=== PATIENT | female | born 1955 | race Two or more races ===

== ENCOUNTER → 2017-02-09 | Outpatient (CLI) | payer OTHER ==
[2015-07-04 02:17] VITALS: BP 128/70
[~2017-02-09] MED LIST: ALPR0.5T6 PO; CYCL10TA2 PO; FLEC100T PO; HYDR12.58 PO; IBUP-1027 PO; IOHEXOL 180 MG/ML 10 ML VIAL. ONE; LEVO125T5 PO; LEVO150T5 PO; LEVO25TA55 PO; METO-269 PO; MULT1TAB52 PO; SUMA25TA3 PO; SUMA50TA3 PO; TRIA1TAB3 PO; methylPREDNISolone ACETATE 40 MG/ML VIAL. ONE; methylPREDNISolone ACETATE 80 MG/ML VIAL. ONE
--- NOTE | 2017-02-09 23:44 | PAIN ---
DATE OF SERVICE: 02/09/2017 PROGRESS NOTE FOR PAIN CLINIC DIAGNOSES: 1. Cervical radiculopathy with cervical degenerative disk disease. 2. Lumbar radiculopathy with lumbar degenerative disk disease. HISTORY OF PRESENT ILLNESS: The patient is a 61-year-old female who returns for followup status post cervical epidural steroid injections, most recently seen on 10/13/2015. The patient did very well near 100% improvement with her neck pain. Her main complaint today is low back and bilateral lower extremity pain. The patient has had difficulty with this about a year ago to 2 years ago and I did very well with lumbar epidural steroid injection at that time. The patient reports pain across the low back into the bilateral posterior gluteus, posterior thighs and calves radiating bilaterally, essentially right equal to left; worse with walking, standing, change in positions. The patient reports the pain is aching, sharp, dull tight shooting. Pain is stabbing, severe, becoming more radiating and constant. The patient reports it is worse at night, does awaken her from sleep at least 2-3 times a night but not every night. She needs to reposition or sleep with a heating pad on her back and this helps. The patient reports pain at 8 on scale 10 on average, 10 on its worse and is a 6 at its least and is a 6 on a scale of 10 today. The patient reports no motor or sensory deficits, no bowel or bladder incontinence or other complaints but still significant pain is noted. PHYSICAL EXAMINATION: VITAL SIGNS: The patient's blood pressure 131/79, pulse 65, respirations 16, temperature 97.9 degrees Fahrenheit, height is 5 feet 2 inches and weight is 166 pounds. GENERAL: The patient is awake, alert, oriented, appropriate and very pleasant demeanor. HEENT: Shows normocephalic and atraumatic. Extraocular movements are intact and symmetrical. Oral cavity: Mucous membranes moist and pink. Dentition is intact. NECK: Shows anterior throat supple without palpable lymphadenopathy noted. Swallow reflex symmetrical. CHEST: Shows normal with inspection. Breath sounds clear to auscultation bilaterally. HEART: Shows S1 and S2 clear. No murmurs auscultated. ABDOMEN: Obese but soft, nontender and nondistended. No palpable organomegaly is noted. No rebound or guarding demonstrated. BACK: Shows spine grossly in the midline. Normal-appearing cervical lordosis, thoracic kyphotic curvature and lumbar lordotic curvature. No previous bruises, lesions, rashes or scars are noted. Lumbar paraspinous muscle shows symmetrical inspection with palpation shows some moderate tenderness but only diffusely bilaterally with palpation. No trigger points or radiation. The patient has good rotational motion of the lumbar spine, both laterally greater than 10 degrees right and left well as extension greater than 10 degrees, forward flexion 45 degrees without difficulty. No tenderness over the sacrum or sacroiliac regions. EXTREMITIES: Lower extremities show deep tendon reflexes at 2+ in the patellar, 1+ tendo-calcaneus tendons are equal. Motor exam is strong with 5/5 dorsiflexion, extension, quadriceps and hamstring flexion equal. Peripheral pulses are 1+ posterior tibial and dorsalis pedis. No peripheral edema is noted bilaterally. Options were discussed with the patient. The patient's old chart was used as well as her current medication regimen updated. Current review of systems updated today as well. We will proceed with lumbar epidural steroid injections, the first in this series with fluoroscopic guidance. Risks were again discussed including, but not limited to bleeding, infection, possibility of epidural hematoma and subsequent neurological compromise, dural puncture, headaches, spinal cord and/or nerve damage, side effects of steroid medication and poor results regarding pain control. The patient understands and wished to proceed. The patient returned to the clinic in approximately 2 weeks for followup, was counseled to return appointment, activity level and side effects to be aware of. DIAGNOSIS: Lumbar radiculopathy with lumbar degenerative disk disease. PROCEDURES: Lumbar epidural steroid injection, translaminar approach, L5-S1 level using C-arm fluoroscopic guidance under sterile prep and drape using local anesthetic. MEDICATION INJECTED: A total of 120 mg Depo-Medrol plus 10 mL of preservative-free normal saline and 2 mL of Isovue for contrast. CONDITION AT DISCHARGE: Stable. The patient tolerated procedure well, had no complications. GOYO DUNCAN MD DR: YOUSIF/arely JOB#: [id number] / [id number]
== END | disposition home or self-care (01) ==
LOC: PNCL 13:27
PROVIDERS: ATTEND Anesthesiology
DX: M51.16 Intervertebral disc disorders with radiculopathy, lumbar region (principal); M50.10 Cervical disc disorder with radiculopathy, unspecified cervical region; I10 Essential (primary) hypertension; E66.9 Obesity, unspecified; E03.9 Hypothyroidism, unspecified; F41.9 Anxiety disorder, unspecified; Z79.82 Long term (current) use of aspirin; Z86.69 Personal history of other diseases of the nervous system and sense organs; Z98.890 Other specified postprocedural states; Z87.39 Personal history of other diseases of the musculoskeletal system and connective tissue
CPT/HCPCS: 62323; J1030; J1040

== ENCOUNTER 2019-07-12 11:37 | Outpatient (CLI) | payer OTHER ==
[2019-07-12] VITALS (11 sets, daily range): BP systolic 114–145; BP diastolic 57–67
[~2019-07-12] VITALS: Ht 157.5 cm; Wt 74.4 kg
[~2019-07-12 11:37] MED LIST changes: +ALBU1.25 NEB; +FLEC50TA PO; -IOHEXOL 180 MG/ML 10 ML VIAL. ONE; +LEVO125T PO; +METO-239 PO; +TRIA1CAP3 PO; -methylPREDNISolone ACETATE 40 MG/ML VIAL. ONE; -methylPREDNISolone ACETATE 80 MG/ML VIAL. ONE
[2019-07-12] MEDS ORDERED: LIDOCAINE 1% PF 2 ML VIAL. ONE (11:51)
[2019-07-12] MEDS ORDERED: IODIXANOL 320 MG/ML 100 ML VIAL. ONE ×2 (11:52)
[2019-07-12] MEDS ORDERED: NITROGLYCERIN 200 MCG/2 ML SYRINGE FOR CATH/VASC LAB. ONE (12:12)
[2019-07-12] MEDS ORDERED: MIDAZOLAM HCL/PF 5 MG/5 ML VIAL. ONE (12:12)
[2019-07-12] MEDS ORDERED: HEPARIN for IV BOLUS 10,000 UNIT/10 ML VIAL. ONE (12:12)
[2019-07-12] MEDS ORDERED: fentaNYL PF VIAL 100 MCG/2 ML VIAL ONE (12:12)
[2019-07-12] MEDS ORDERED: VERAPAMIL 5 MG/2 ML VIAL. ONE (12:12)
[2019-07-12] MEDS ORDERED: HEPARIN for IV BOLUS 10,000 UNIT/10 ML VIAL. IART ONE (12:30)
[2019-07-12] MEDS ORDERED: VERAPAMIL 5 MG/2 ML VIAL. IART ONE (12:30)
[2019-07-12] MEDS ORDERED: MIDAZOLAM HCL/PF 5 MG/5 ML VIAL. IV ONE (12:30)
[2019-07-12] MEDS ORDERED: LIDOCAINE 1% PF 2 ML VIAL. INJ ONE (12:30)
[2019-07-12] MEDS ORDERED: CONTRAST GIVEN. MC PRN (12:30)
[2019-07-12] MEDS ORDERED: fentaNYL PF VIAL 100 MCG/2 ML VIAL IV ONE (12:30)
[2019-07-12] MEDS ORDERED: IODIXANOL 320 MG/ML 100 ML VIAL. IART ONE (12:30)
[2019-07-12] MEDS ORDERED: NITROGLYCERIN 200 MCG/2 ML SYRINGE FOR CATH/VASC LAB. IART ONE (12:30)
[2019-07-12] MEDS ORDERED: IV 1/2 NORMAL SALINE 1,000 ML IV SCH (13:11)
--- NOTE | 2019-07-12 13:11 | PDOC ---
MODERATE SEDATION ASSESSMENT RISKS/ALTERNATIVES Risks/Alternatives Risks and alternatives of this type of sedation and procedure discussed with: RISK/ALTERNATIVES: Patient H & P ON CHART H & P H & P on chart and reviewed for co-morbid conditions and appropriate labs. H&P ON CHART: Yes STATUS PREG STATUS ASSESSED: N/A MEDS/ALLERGIES REVIEWED Meds/Allergies Reviewed Medications and Allergies including time and route of recently administered narcotics and sedatives. MEDS/ALLERGIES REVIEWED: Yes ASA RATING ASA RATING: II AIRWAY ASSESSMENT Airway Assessment Airway patency, oral function limitations, presence of caps, crowns, dentures, partials, and ability to extend neck assessed. AIRWAY ASSESSMENT: Yes MALLAMPATI SCORE MALLAMPATI SCORE: II PRE-SEDATION ASSESSMENT PRE-SEDATION ASSESSMENT: Yes BAILEY CONTI MD July 12, 2019 13:11
[2019-07-12] MEDS ORDERED: 0.9 % SODIUM CHLORIDE 10 ML DISP.SYRIN. IV PRN (13:15)
--- NOTE | 2019-07-12 13:21 | CARD ---
MR#: [id number] Date of Study: 07/12/2019 Ordering Physician: BAILEY CONTI, Referring Physician: BAILEY CONTI Tech: KIMMIE IQBAL RTR APPROVED REPORT Technologist: KIMMIE IQBAL RTR Nurse: Hodan Herrera R.N. Procedure(s) performed: Left heart catheterization, selective coronary angiography and left ventricul ography via right transradial approach MODERATE SEDATION TIME: 34 MINS FLUORO TIME: 3.5 MIN DOSE: 37.9 GYCM2 CONTRAST: 73CC VISI INDICATION The indication(s) include : unstable angina . CSHA Clinical Frailty Scale CSHA Clinical Frailty Scale: Managing Well Heart Failure Heart Failure: No PROCEDURE NARRATIVE After explaining the risks, benefits and alternative options, informed consent was obtained from ricardo ent. Patient was brought to the cardiac [facility] and right wrist was prepped and draped in the usual fashion after confirming a positive modified Arslan's test. Arterial access was obtained in the righ t radial artery and a 6 [place] sheath was inserted. 6 [place] Huan catheter was used to perform lynette ective angiography of the left and right coronary arteries. 6 [place] pigtail catheter was used to pe rform left ventriculography. Patient tolerated the procedure well. Hemostasis was achieved using TR band. There were no immediate complications. The following findings were noted. FINDINGS 1. Hemodynamics: Left ventricular end-diastolic pressure of 16 mmHg. No pullback gradient across th e aortic valve. 2. Left ventriculography: Normal left ventricle systolic function with ejection fraction estimated at 65%. No significant mitral regurgitation seen. 3. Coronary angiography: a. The left main coronary artery arose from the left sinus of Valsalva, gave rise to the left anteri or descending and left circumflex arteries and did not show any significant stenosis. b. The left anterior descending artery did not show any significant stenosis. c. The left circumflex artery did not show any significant stenosis. d. The right coronary artery was a large and dominant vessel arising from the right sinus of Valsalv a that showed 20 to 30% stenosis in the midsegment. Conclusion 1. No significant coronary disease 2. Normal left ventricular systolic function with ejection fraction estimated at 65%. Signed by : Bailey Conti, Electronically Approved : 07/12/2019 13:20:47
--- NOTE | 2019-07-12 15:40 | NUR ---
Discharge Note: NIGHAT VIRK Discharge instructions and discharge home medications reviewed with Patient and a copy given. All questions have been answered and understanding verbalized. The following instructions and handouts were given: Radial site care and Post moderate sedation Discontinued lines and drains: right ac iv dc'd and tip intact. Patient discharged to home with via private car.
== END 2019-07-12 15:49 | disposition home or self-care (01) ==
LOC: CCL 11:37
PROVIDERS: ATTEND Internal Medicine Cardiovascular Disease
DX: I25.110 Atherosclerotic heart disease of native coronary artery with unstable angina pectoris (principal)
CPT/HCPCS: 93458; 99152; 99153; C1769; C1892; J1644; J2250; J3010; J3490; Q9967

== ENCOUNTER → 2020-11-30 | Outpatient (CLI) | payer OTHER ==
[2019-07-12 15:39] VITALS: BP 130/64
[~2020-11-30] MED LIST changes: +MULT-445 PO; -MULT1TAB52 PO
--- NOTE | 2020-11-30 19:49 | KCIC ---
Bilateral digital screening mammograms with 3-D tomosynthesis: Reason for examination: Routine screening. Comparison is made to previous studies dated back to 06/17/2014. Bilateral mammograms in CC and oblique projections were obtained with 2-D imaging and 3-D tomosynthes is imaging on a Siemens Inspiration unit and reviewed on the workstation. Interpretation was made wit h the benefit of CAD. The skin and nipples show no abnormalities. No abnormal axillary lymph nodes are seen. The breast par enchyma shows scattered fatty and fibroglandular density. (Breast density: Category B.) There are no dominant masses, suspicious calcifications or architectural distortion. Benign calcifications are pre sent. Impression: No evidence of malignancy. Recommend routine screening. BI-RAD Category 2: Benign. "Our facility is accredited by the [employer] Mammography Program." This patient's information has been entered into a reminder system for the patient to be notified wit h the results of her examination and a target date for the next mammogram. Electronically signed by: Caro Barahona MD (11/30/2020 7:46 PM) [id number]
== END ==
LOC: KCIC MAMMO 13:13
PROVIDERS: ATTEND Obstetrics & Gynecology
DX: Z12.31 Encounter for screening mammogram for malignant neoplasm of breast (principal); R92.1 Mammographic calcification found on diagnostic imaging of breast
CPT/HCPCS: 77063; 77067